=== PATIENT | female | born 1965 | race Caucasian/White ===

== ENCOUNTER 2020-04-26 03:41 | Emergency (ER) | payer OTHER ==
[2020-04-26 03:44] VITALS: BP 119/72; PULSE 77; TEMP 98.9; BMI 28.3
[2020-04-26] MEDS ORDERED: ACETAMINOPHEN 1000 MG/100 ML VIAL (NON FORMULARY) IVPB ONE (04:12)
[2020-04-26] MEDS ORDERED: ACETAMINOPHEN INJECTION 100 ML IVPB ONE (04:18)
[2020-04-26 05:19] LABS: BASO % 0.4 % (0-2.0); EOS % 0.5 % (0-4.5); HEMATOCRIT 41.5 % (32.4-45.2); HEMOGLOBIN 14.3 GM/dL (10.7-15.3); LYMPH % 16.3 % (8-40); MCH 30.4 pg (25.7-33.7); MCHC 34.4 g/dl (32.0-36.0); MEAN CELL VOLUME 88.4 fl (80-96); MEAN PLT VOLUME 9.4 fl (7.5-11.1); MONO % 7.2 % (3.8-10.2); NEUT % 75.6 % (42.8-82.8); PLATELET COUNT 287 K/MM3 (134-434); RDW 12.1 % (11.6-15.6); WHITE BLOOD COUNT 7.7 K/mm3 (4.0-10.0)
[2020-04-26 05:26] LABS: INR 1.05 (0.83-1.09); PROTHROMBIN TIME (PATIENT) 12.9 SEC (9.7-13.0)
[2020-04-26 05:29] LABS: ACTIVATED PTT 29.9 SECONDS (25.2-36.5)
[2020-04-26 05:37] LABS: CHLORIDE 108 mmol/L (98-107); POTASSIUM 4.3 mmol/L (3.5-5.1); SODIUM 143 mmol/L (136-145)
[2020-04-26 05:39] LABS: CALCIUM 8.5 mg/dL (8.5-10.1)
[2020-04-26 05:40] LABS: ALBUMIN 3.2 g/dl (3.4-5.0); ANION GAP 7 MMOL/L (8-16); BLOOD UREA NITROGEN 6.6 mg/dL (7-18); CO2 29 mmol/L (21-32); GLUCOSE,RANDOM 97 mg/dL (74-106)
[2020-04-26 05:43] LABS: CREATININE 0.5 mg/dL (0.55-1.3); SGOT/AST 34 U/L (15-37); SGPT/ALT 56 U/L (13-61)
[2020-04-26 05:44] LABS: BILIRUBIN,TOTAL 0.5 mg/dL (0.2-1); LDH 359 U/L (84-246)
[2020-04-26 05:46] LABS: ALK PHOS 143 U/L (45-117)
== END 2020-04-26 06:15 | disposition home or self-care (01) ==
LOC: JER 03:41
PROC: 3E033NZ Introduction of Analgesics, Hypnotics, Sedatives into Peripheral Vein, Percutaneous Approach (ICD-10-PCS; principal; 2020-04-26)
DX: R53.83 Other fatigue (principal)
CPT/HCPCS: 36415; 71045-TC-FY; 80053; 82728; 83615; 84484; 85025; 85379; 85610; 85730; 86140; 99284-25; J0131